=== PATIENT | female | born 1950 | race Caucasian/White ===

== ENCOUNTER 2021-11-02 21:34 | Emergency (ER) | payer MEDICARE ==
[~2021-11-02] VITALS: Ht 157.5 cm; Wt 81.0 kg
--- NOTE | 2021-11-02 21:43 | PHYS DOC ---
Past History Past Medical History: Anxiety, Arthritis, Hypertension, Hypothyroid, UTI Past Medical History Osteoporosis General Adult HPI: HPI: ".. I got really dizzy.. fall out... It looks like the room was spinning "..." I did have some nausea today and a little diarrhea..." Patient is a 70 year old female who presents with acute onset of weakness, nausea and dizzy episodes. Pt. follow s with Dr. Da Silva. Pt. did get flu vaccination, but has refused to get COVID. Recent travel. No significant ill contacts. No bad food intake. No history of trauma. No recent fever or chills. Patient mental status at baseline according to son who lives with her. Past medical history of skin cancer basal cell With resection of large lesion on nose. History of arthritis, DM and hypertension. Review of Systems: Review of Systems: Constitutional: Denies fever or chills Eyes: Denies change in visual acuity HENT: Denies nasal congestion or sore throat Respiratory: Denies cough or shortness of breath Cardiovascular: Denies chest pain or edema GI: Complains of, nausea, and diarrhea : Some dysuria Musculoskeletal: Denies back pain or joint pain Integument: Denies rash Neurologic: Denies headache, focal weakness or sensory changes complains of vertigo Endocrine: Denies polyuria or polydipsia Lymphatic: Denies swollen glands Psychiatric: Denies depression or anxiety Family History: Family History: Noncontributory to presentation Current Medications: Current Meds: Current Medications Medications (Trade) Dose Ordered Sig/Robbin Start Time Stop Time Status Last Admin Dose Admin Lactated Ringer's 1,000 ml @ 100 mls/hr Q10H 11/02/21 21:45 11/03/21 07:44 UNV Ondansetron HCl (Zofran) 8 mg 1X ONCE 11/02/21 21:45 11/02/21 21:46 UNV Allergies: Allergies: No known drug allergies Physical Exam: PE: Constitutional: no acute distress, non-toxic appearance. [] HENT: Normocephalic, atraumatic, bilateral external ears normal, oropharynx moist, no oral exudates, nose normal. Large forehead scar (- from Basal Cell revision of nose.) Eyes: PERRLA, EOMI, conjunctiva normal, no discharge. [] Neck: Normal range of motion, no tenderness, supple, no stridor. [] Cardiovascular:Heart rate regular rhythm, no murmur [] PMI to the left Lungs & Thorax: Bilateral breath sounds equal and apex auscultation [] Abdomen: Bowel sounds hyperactive, soft, no tenderness, no masses, no pulsatile masses. Old surgical scar. Obese Skin: Warm, dry, no erythema, no rash. [] Poor turgor. Back: No tenderness, no CVA tenderness. [] Extremities: No tenderness, no cyanosis, no clubbing, ROM intact, no edema. Arthritic changes. No cording appreciated Neurologic: Alert and oriented X 3, normal motor function, normal sensory function, no focal deficits noted. [] DTRs +2 patella and brachial. No drift. Employee Training Specialist equal. Right-hand dominant. Psychologic: Affect anxious, judgement normal, mood normal. [] EKG: EKG: My interpretation EKG shows a sinus rhythm at 65 bpm. There is baseline artifact. There is no findings of acute STEMI or contralateral changes. There is some T wave changes in the anterior leads. Time of EKG is 2213 hrs. [] My interpretation second EKG shows a sinus rhythm at 61 bpm. Left axis. Some nonspecific T wave inversion project anterior leads with inversion in V1 2 and 3 this is not change from prior EKG. no findings of acute STEMI of contralateral changes. Is an abnormal EKG EKG but appears to have stable changes. Time of EKG is 00 48 hours Radiology/Procedures: Radiology/Procedures: [address] [address] IMAGING REPORT Signed PATIENT: ALANNAH KHAN MACCOUNT: [id number] : 1950 LOCATION: ER AGE: 70 SEX: F EXAM STATUS: REG ER ORD. PHYSICIAN: SILVIA MICHEL MD REASON: fall, dizzy PROCEDURE: CT HEAD AND CERVICAL SPINE WO EXAM: 1. CT HEAD WITHOUT CONTRAST. 2. CT CERVICAL SPINE WITHOUT CONTRAST. HISTORY: Fall, dizziness. TECHNIQUE: Computed tomography of the head and cervical spine was performed without intravenous contrast. One or more of the following individualized dose reduction techniques were utilized for this examination: 1. Automated exposure control. 2. Adjustment of the mA and/or kV according to patient size. 3. Use of iterative reconstruction technique. COMPARISON: None. FINDINGS: There is no intracranial hemorrhage. Lee-white differentiation is preserved. The ventricles are normal in size and position. The visualized paranasal sinuses appear clear. The orbits are unremarkable. The temporal bones are unremarkable. The calvarium reveals no suspicious lesions. Alignment is maintained. There is mild osteoarthritis at C1/2. No fractures are identified. Degenerative disc disease is moderate from C5 through C7. There is no prevertebral soft tissue swelling. At C2-3, there is a small posterior disc bulge. There is no stenosis. At C3-4, there is a small posterior disc bulge. Left facet and uncovertebral osteoarthritis are moderate. Left neural foraminal stenosis is moderate. Right facet osteoarthritis is mild. At C4-5, there is a small posterior disc bulge. There is no stenosis. At C5-6, there is a small posterior disc-osteophyte complex. Uncovertebral osteoarthritis is mild bilaterally. Left neural foraminal stenosis is mild. At C6-7, there is a small posterior disc-osteophyte complex. Left uncovertebral osteoarthritis is moderate. Left neural foraminal stenosis is mild. IMPRESSION: 1. No acute intracranial findings. 2. No cervical fracture or acute malalignment. Degenerative changes as above. Electronically signed by: Sheng Mcclelland MD (11/03/2021 1:31 AM) [facility] DICTATED AND SIGNED BY: JOSE LUIS MCCLELLAND MD DATE: 11/03/215 CC: SILVIA MICHEL MD; LESLEY DA SILVA MD ~MTH0 0 [] IMAGING REPORT Signed PATIENT: ALANNAH KHAN MACCOUNT: [id number] : 1950 LOCATION: ER AGE: 70 SEX: F EXAM STATUS: REG ER ORD. PHYSICIAN: SILVIA MICHEL MD REASON: dyspnea PROCEDURE: PORTABLE CHEST 1V EXAM: AP View of the chest DATE: 11/02/2021 9:54 PM INDICATION: Reason: dyspnea / Spl. Instructions: / History: COMPARISON: No Prior FINDINGS: The heart is not enlarged. Aorta is tortuous. Left lung base opacities likely atelectasis or developing consolidation. No pleural effusion or pneumothorax. IMPRESSION: Left lung base opacities likely atelectasis or developing consolidation. Electronically signed by: Linwood Casey MD (11/02/2021 10:16 PM) [facility] DICTATED AND SIGNED BY: LINWOOD CASEY MD DATE: 11/02/212211 CC: SILVIA MICHEL MD; LESLEY DA SILVA MD ~MTH0 0 Heart Score: C/O Chest Pain: N/A HEART Score for Chest Pain: HEART Score for Chest Pain Response (Comments) Value History Moderately Suspicious 1 ECG Nonspecific Repolarizatio 1 Age >45 - < 65 1 Risk Factors 1 or 2 Risk Factors 1 Troponin < Normal Limit 0 Total 4 Risk Factors: Risk Factors: DM, Current or recent (<one month) smoker, HTN, HLP, family history of CAD, obesity. Risk Scores: Score 0 - 3: 2.5% MACE over next 6 weeks - Discharge Home Score 4 - 6: 20.3% MACE over next 6 weeks - Admit for Clinical Observation Score 7 - 10: 72.7% MACE over next 6 weeks - Early Invasive Strategies Course & Med Decision Making: Course & Med Decision Making Pertinent Labs and Imaging studies reviewed. (See chart for details) Pt. to follow up urine and COVID testing . Push vit. C drinks. Take Cipro twice a day. Follow up urine cultures. Take Meclizine 25 for dizzy episodes and nausea. Take daily baby aspirin until follow up with primary. Impression: 1. Viral Syndrome 2. Viral Labyrinthitis 3. UTI 4. Bi Basilar infiltrates- inflammatory vs infectious. 5. Glucose 140 [] Dragon Disclaimer: Dragon Disclaimer: This electronic medical record was generated, in whole or in part, using a voice recognition dictation system. Departure Departure: Referrals: PCP,UNKNOWN (PCP) Scripts Ciprofloxacin (CIPRO) 500 Mg/5 Ml Keena.mc.rec 500 MG PO BID for uti for 7 Days, MISC Prov: SILVIA MICHEL MD 11/03/21 Meclizine Hcl (MECLIZINE HCL) 25 Mg Tablet 25 MG PO QIDPRN for dizzy, nausea, #30 TAB Prov: SILVIA MICHEL MD 11/03/21 Dragon Disclaimer This chart was dictated in whole or in part using Voice Recognition software in a busy, high-work load, and often noisy Emergency Department environment. It may contain unintended and wholly unrecognized errors or omissions. SILVIA MICHEL MD Nov 02, 2021 21:43
--- NOTE | 2021-11-02 22:19 | RAD ---
EXAM: AP View of the chest DATE: 11/02/2021 9:54 PM INDICATION: Reason: dyspnea / Spl. Instructions: / History: COMPARISON: No Prior FINDINGS: The heart is not enlarged. Aorta is tortuous. Left lung base opacities likely atelectasis or developi ng consolidation. No pleural effusion or pneumothorax. IMPRESSION: Left lung base opacities likely atelectasis or developing consolidation. Electronically signed by: Linwood Serrano MD (11/02/2021 10:16 PM) [facility]
[2021-11-02] MEDS ORDERED: IV RINGERS SOLUTION,LACTATED 1,000 ML IV SCH (22:30)
[2021-11-02] MEDS ORDERED: diphenhydrAMINE 50 MG/ML VIAL IVP ONE (22:30)
[2021-11-02] MEDS ORDERED: ONDANSETRON PF 4 MG/2 ML VIAL. IVP ONE ×2 (22:30)
[2021-11-02 22:47] LABS: BASO # 0.1 x10^3/uL (0.0-0.2); BASO % 1 % (0-3); EOS # 0.1 x10^3/uL (0.0-0.7); EOS % 1 % (0-3); HEMATOCRIT 40.8 % (36.0-47.0); HEMOGLOBIN 13.9 g/dL (12.0-15.5); LYMPH # 2.3 x10^3/uL (1.0-4.8); LYMPH % 31 % (24-48); MEAN CORPUSCULAR HEMOGLOBIN 32 pg (25-35); MEAN CORPUSCULAR HGB CONC 34 g/dL (31-37); MEAN CORPUSCULAR VOLUME 94 fL (79-100); MONO # 0.5 x10^3/uL (0.0-1.1); MONO % 7 % (0-9); NEUT # 4.6 x10^3uL (1.8-7.7); NEUT % 61 % (31-73); PLATELET COUNT 284 x10^3/uL (140-400); RED BLOOD COUNT 4.32 x10^6/uL (3.50-5.40); RED CELL DISTRIBUTION WIDTH 13.1 % (11.5-14.5); WHITE BLOOD COUNT 7.6 x10^3/uL (4.0-11.0)
[2021-11-02 23:00] LABS: CALCIUM 8.6 mg/dL (8.5-10.1); GFR 54.5; POTASSIUM 3.8 mmol/L (3.5-5.1)
[2021-11-02 23:09] LABS: INFLUENZA A PATIENT NEGATIVE (NEGATIVE); INFLUENZA B PATIENT NEGATIVE (NEGATIVE)
[2021-11-02 23:12] LABS: ALBUMIN 3.6 g/dL (3.4-5.0); DIRECT BILIRUBIN 0.2 mg/dL (0.0-0.2); MAGNESIUM 2.3 mg/dL (1.8-2.4); TOTAL BILIRUBIN 0.4 mg/dL (0.2-1.0); TOTAL PROTEIN 6.6 g/dL (6.4-8.2)
--- NOTE | 2021-11-03 00:30 | EKG ---
[address] [address] Test Date: 2021-11-02 Test Time: 22:13:09 Pat Name: ALANNAH KHAN Department: Room: Gender: F Leacher: : 1950 Requested By: SILVIA MICHEL Order Number: [id number] Reading MD: Measurements Intervals [place] Rate: 65 P: AL: QRS: 0 QRSD: 92 T: -35 QT: 430 QTc: 453 Interpretive Statements IRREGULAR RHYTHM, NO P-WAVE FOUND LEFTWARD AXIS T ABNORMALITY IN ANTERIOR LEADS INFERIOR LEADS ABNORMAL ECG RI6.02 No previous ECG available for comparison
[2021-11-03 00:36] LABS: BARBITURATES NEG (NEG); BENZODIAZEPINES NEG (NEG); CANNABINOIDS NEG (NEG); COCAINE NEG (NEG); METHADONE NEG (NEG); OPIATES NEG (NEG); PHENCYCLIDINE NEG (NEG)
[2021-11-03 00:37] LABS: AMPHETAMINE/METHAMPHETAMINE NEG (NEG)
[2021-11-03 00:45] LABS: CLARITY,URINE HAZY; COLOR,URINE YELLOW
[2021-11-03 00:46] LABS: BACTERIA,URINE MANY /HPF (0-FEW); BILIRUBIN,URINE NEG (NEG); GLUCOSE,URINE NEG (NEG); NITRITE,URINE NEG (NEG); SQUAMOUS EPITHELIAL CELL,UR MOD /LPF; UROBILINOGEN,URINE 0.2 mg/dL (0.2 mg/dL); WBC,URINE >40 /HPF (0-4)
[2021-11-03] MEDS ORDERED: ALBUTEROL SULFATE 8GM INHALER. INH ONE (01:00)
--- NOTE | 2021-11-03 01:34 | RAD ---
EXAM: 1. CT HEAD WITHOUT CONTRAST. 2. CT CERVICAL SPINE WITHOUT CONTRAST. HISTORY: Fall, dizziness. TECHNIQUE: Computed tomography of the head and cervical spine was performed without intravenous contr ast. One or more of the following individualized dose reduction techniques were utilized for this exa mination: 1. Automated exposure control. 2. Adjustment of the mA and/or kV according to patient size. 3. Use of iterative reconstruction technique. COMPARISON: None. FINDINGS: There is no intracranial hemorrhage. Lee-white differentiation is preserved. The ventricl es are normal in size and position. The visualized paranasal sinuses appear clear. The orbits are unremarkable. The temporal bones are un remarkable. The calvarium reveals no suspicious lesions. Alignment is maintained. There is mild osteoarthritis at C1/2. No fractures are identified. Degenerat david disc disease is moderate from C5 through C7. There is no prevertebral soft tissue swelling. At C2-3, there is a small posterior disc bulge. There is no stenosis. At C3-4, there is a small posterior disc bulge. Left facet and uncovertebral osteoarthritis are moder ate. Left neural foraminal stenosis is moderate. Right facet osteoarthritis is mild. At C4-5, there is a small posterior disc bulge. There is no stenosis. At C5-6, there is a small posterior disc-osteophyte complex. Uncovertebral osteoarthritis is mild erma aterally. Left neural foraminal stenosis is mild. At C6-7, there is a small posterior disc-osteophyte complex. Left uncovertebral osteoarthritis is mod erate. Left neural foraminal stenosis is mild. IMPRESSION: 1. No acute intracranial findings. 2. No cervical fracture or acute malalignment. Degenerative changes as above. Electronically signed by: hSeng Mcclelland MD (11/03/2021 1:31 AM) [facility]
[2021-11-03] MEDS ORDERED: IV NORMAL SALINE 50ML 50 ML ONE (01:35)
[2021-11-03] MEDS ORDERED: cefTRIAXone SODIUM 1 GM VIAL ONE (01:36)
[2021-11-03] MEDS ORDERED: MECL-75 PO (01:51)
[2021-11-03] MEDS ORDERED: CIPR500S2 PO (01:51)
[2021-11-03] MEDS ORDERED: CIPROFLOXACIN HCL 500 MG TABLET PO ONE (02:00)
[2021-11-03 02:06] VITALS: BP 130/68
--- NOTE | 2021-11-03 02:30 | EKG ---
[address] [address] Test Date: 2021-11-03 Test Time: 00:48:42 Pat Name: ALANNAH KHAN Department: Room: Gender: F Director Of Finance: : 1950 Requested By: SILVIA MICHEL Order Number: [id number] Reading MD: Measurements Intervals [place] Rate: 61 P: 36 CA: 176 QRS: -2 QRSD: 94 T: -31 QT: 440 QTc: 444 Interpretive Statements SINUS RHYTHM LEFTWARD AXIS T ABNORMALITY IN ANTERIOR LEADS INFERIOR LEADS ABNORMAL ECG RI6.02 No previous ECG available for comparison
== END 2021-11-03 02:42 | disposition home or self-care (01) ==
LOC: ER 21:34
DX: B34.9 Viral infection, unspecified (principal); H83.09 Labyrinthitis, unspecified ear; N39.0 Urinary tract infection, site not specified; F41.9 Anxiety disorder, unspecified; M19.90 Unspecified osteoarthritis, unspecified site; I10 Essential (primary) hypertension; E03.9 Hypothyroidism, unspecified; Z20.822 Contact with and (suspected) exposure to COVID-19; Z87.440 Personal history of urinary (tract) infections
CPT/HCPCS: 36415; 70450; 71045; 72125; 80048; 80076; 80307; 81001; 82550; 83690; 83735; 83880; 84443; 84484; 85025; 85379; 85610; 85730; 87086; 87426; 87804; 93005; 94640; 96361; 96365; 96375; 99285; C9803; J0696; J1200; J2405; J7120; U0003; 94664